=== PATIENT | male | born 1980 | race Caucasian/White ===

== ENCOUNTER 2022-02-21 13:18 | Emergency (ER) | payer OTHER ==
[~2022-02-21] VITALS: Ht 180.3 cm; Wt 84.0 kg
[2022-02-21 13:43] VITALS: BP 114/62
[2022-02-21] MEDS: LIDOCAINE 2% 20 ML VIAL. IJ ONE (13:45)
[2022-02-21] MEDS: IV NORMAL SALINE 1,000ML 1,000 ML IV ONE (13:45)
--- NOTE | 2022-02-21 14:26 | RAD ---
EXAMINATION: XR HAND_RIGHT 3 VIEWS CLINICAL HISTORY: Right hand pain. Crush injury between van and boat trailer. TECHNIQUE: XR HAND_RIGHT 3 VIEWS COMPARISON: None FINDINGS/ IMPRESSION: Joint spaces and alignment maintained. No acute fracture. Mild soft tissue swelling in the index and long fingers. Electronically signed by: Mahamed Yi DO (02/21/2022 2:24 PM) [facility]
[2022-02-21] MEDS ORDERED: IBUP800T19 PO (14:39)
--- NOTE | 2022-02-21 14:40 | PHYS DOC ---
Past History Past Medical History: No Pertinent History (AMY ROJAS) Past Surgical History: No Surgical History (AMY ROJAS) Smoking: Non-smoker Drug Use: None (AMY ROJAS) General Adult EDM: Chief Complaint: LACERATION/AVULSION HPI: HPI: Patient is a 41 year old male who presents with right hand laceration. Patient states that he was trying to prevent a boat trailer from hitting a van using his hand. He lacerated the base of digit 4 on the palmar aspect. Patient denies limited mobility of digit or any other part of his hand, paresthesias. Patient's tetanus vaccine has been updated in the last 5 years. He has no other complaints. (AMY ROJAS) Review of Systems: Review of Systems: ROS negative or noncontributory except as mentioned in HPI. (AMY ROJAS) Current Medications: Current Meds: Current Medications Medications (Trade) Dose Ordered Sig/Breana Start Time Stop Time Status Last Admin Dose Admin Lidocaine HCl (Lidocaine 2%) 20 ml 1X ONCE 02/21/22 13:45 02/21/22 13:52 DC (AMY ROJAS) Allergies: Allergies: Allergies Coded Allergies Type Severity Reaction Last Updated Verified No Known Drug Allergies 02/21/22 No (AMY ROJAS) Physical Exam: PE: Constitutional: Well developed, well nourished, no acute distress, non-toxic appearance. HENT: Normocephalic, atraumatic, bilateral external ears normal, oropharynx moist, no oral exudates, nose normal. Eyes: PERRL, EOMI, no conjunctival pallor, no discharge. Neck: Normal range of motion, no stridor. Cardiovascular: Heart regular rate and rhythm. No apparent murmurs rubs or gallops. Episodic bradycardia in the mid to upper 30s. Lungs & Thorax: Equal thoracic expansion, no increased work of breathing. Skin: Approximately 1.2 cm laceration along MCP fold of base of digit 4 on the right. Skin otherwise warm, dry, no erythema, no rash. Extremities: No tenderness, no cyanosis, no clubbing, active and passive ROM intact bilateral digits and wrists, no edema, radial pulses 2+ and symmetrical. Neurologic: Alert and oriented x4, normal motor function, normal sensory function, no focal deficits noted. (AMY ROJAS) Current Patient Data: Vital Signs: VS - Last 72 Hours, by Label Date Time Temp Pulse Resp B/P (MAP) Pulse Ox O2 Delivery O2 Flow Rate FiO2 02/21/22 13:43 97.8 42 18 114/62 (79) 97 Room Air (AMY ROJAS) EKG: EKG: EKG Interpreted by Dr. Cuellar at 1451: Sinus bradycardia at 46 bpm with no ectopic beats. IL 179 ms/QT 449 ms/QTc 393 ms. Early repolarization pattern. No STEMI. (AMY ROJAS) Radiology/Procedures: Radiology/Procedures: PROCEDURE: HAND RIGHT 3V EXAMINATION: XR HAND_RIGHT 3 VIEWS CLINICAL HISTORY: Right hand pain. Crush injury between van and boat trailer. TECHNIQUE: XR HAND_RIGHT 3 VIEWS COMPARISON: None FINDINGS/ IMPRESSION: Joint spaces and alignment maintained. No acute fracture. Mild soft tissue swelling in the index and long fingers. Electronically signed by: Mahamed Yi DO (02/21/2022 2:24 PM) [facility] (AMY ROJAS) Heart Score: C/O Chest Pain: No (AMY ROJAS) Course & Med Decision Making: Course & Med Decision Making Pertinent Labs and Imaging studies reviewed. (See chart for details) Patient is a 41-year-old male who presents with right hand laceration. During laceration repair, patient was noted to have heart rate in the mid to high 30s intermittently. Patient states his baseline heart rate is in the 40s. EKG was obtained for evaluation. No acute concerning symptoms. Patient is not symptomatic. Patient was instructed to follow-up with his primary care doctor. Return precautions and wound care instructions provided. Patient understands and is agreeable to discharge plan. (AMY ROJAS) Dragon Disclaimer: Dragon Disclaimer: This electronic medical record was generated, in whole or in part, using a voice recognition dictation system. (AMY ROJAS) Laceration Repair Lac Repair Indication: Right hand laceration Procedure: The patient was placed in the appropriate position and anesthesia around the laceration was 2% lidocaine plain. The area was then cleansed with Betadine swabs and copiously irrigated with sterile saline. The laceration was 3 simple interrupted 4-0 nylon sutures. The wound area was then dressed with nonadhesive gauze covering. Total repaired wound length: 1.2 cm. Other Items: The patient tolerated the procedure well. Complications: Intermittent, asymptomatic sinus bradycardia. (AMY ROJAS) Attending Co-Sign The patient was seen and interviewed as well as examined at the bedside. The chart was reviewed. The case was discussed. Agree with the plan of care. (MAKI CUELLAR DO) Departure Departure: Impression: Primary Impression: Laceration of right hand without complication, including fingers Qualified Codes: S61.411A - Laceration without foreign body of right hand, initial encounter Additional Impression: Sinus bradycardia seen on cfo controller Disposition: HOME / SELF CARE / HOMELESS Condition: IMPROVED Referrals: PCP,UNKNOWN (PCP) Patient Instructions: Bradycardia, Sutured Wound Care, [id number] Additional Instructions: Please schedule an appointment with your primary care physician to follow-up regarding episodic low heart rate seen in the emergency department today. Your primary care physician may also remove your sutures in 7 days. If you are unable to see your primary care provider for this purpose, feel free to return to the emergency department. Please also return for any lightheadedness, loss of consciousness or chest discomfort. EMERGENCY DEPARTMENT GENERAL DISCHARGE INSTRUCTIONS Thank you for coming to [facility] (ED) today and trusting us with you care. We trust that you had a positive experience in our Emergency Department. If you wish to speak to the department management, you may call the director at [phone]. YOUR FOLLOW UP INSTRUCTIONS ARE FOLLOWS: 1. Follow up with your primary care doctor. If you do not have a primary doctor, please ask for a resource list of physicians or clinics that may be able to assist you with follow up care. 2. The emergency provider has interpreted your imaging studies, if any were ordered. The radiology diagnostic sales specialist also reviewed them. If there is a change in the findings, you will be notified in 48 hours when at all possible. 3. If a lab test or culture has been done, your results will be reviewed and you will be notified if you need a change in treatment. 4. Follow instructions verbalized to you and refer to the printouts if needed. ADDITIONAL INSTRUCTIONS AND INFORMATION: 1. Your care today has been supervised by a physician who is specially trained in emergency care. Many problems require more than one evaluation for a complete diagnosis and treatment. We recommend that you schedule your follow up appointment as recommended to ensure complete treatment of you illness or injury. If you are unable to obtain follow up care and continue to have a problem, or if your condition worsens, we recommend that you return to the ED. 2. We are not able to safely determine your condition over the phone nor are we able to give sound medical advice over the phone. For these safety reasons, if you call for medical advice we will ask you to come to the ED for further evaluation. 3. If you have any questions regarding these discharge instructions please call the ED at [phone]. SAFETY INFORMATION: In the interest of safety, wellness, and injury prevention; we encourage you to wear your seat belt, if you smoke; quite smoking, and we encourage family to use a protective helmet for bicycling and other sporting events that present an increased risk for head injury. IF YOUR SYMPTOMS WORSEN OR NEW SYMPTOMS DEVELOP, OR YOU HAVE CONCERNS ABOUT YOUR CONDITION; OR IF YOUR CONDITION WORSENS WHILE YOU ARE WAITING FOR YOUR FOLLOW UP APPOINTMENT; EITHER CONTACT YOUR PRIMARY CARE DOCTOR, THE PHYSICIAN WHOSE NAME AND NUMBER YOU WERE GIVEN, OR RETURN TO THE ED IMMEDIATELY. Scripts Ibuprofen (IBUPROFEN) 800 Mg Tablet 1 TAB PO TID for pain, #30 TAB Prov: AMY ROJAS 02/21/22 AMY ROJAS February 21, 2022 14:40 MAKI CUELLAR DO February 22, 2022 06:08
== END 2022-02-21 15:10 | disposition home or self-care (01) ==
LOC: ER 13:18
DX: S61.411A Laceration without foreign body of right hand, initial encounter (principal); R00.1 Bradycardia, unspecified; W26.8XXA Contact with other sharp object(s), not elsewhere classified, initial encounter; Y93.89 Activity, other specified; Y92.89 Other specified places as the place of occurrence of the external cause; Y99.8 Other external cause status
CPT/HCPCS: 12001; 73130; 93005; 99283; J2001

== ENCOUNTER 2022-03-01 12:55 | Emergency (ER) | payer OTHER ==
[~2022-03-01] VITALS: Ht 180.3 cm; Wt 84.0 kg
[~2022-03-01 12:55] MED LIST: IBUP800T19 PO
--- NOTE | 2022-03-01 13:19 | PHYS DOC ---
Past History Past Medical History: No Pertinent History Past Surgical History: No Surgical History Smoking: Non-smoker Drug Use: None General Adult EDM: Chief Complaint: SUTURE/STAPLE REMOVAL HPI: HPI: Patient is a 38-year-old male who presents to the emergency department today for suture removal. Patient reports that he had 3 sutures placed to his right third finger 8 days ago. Patient does not have any complaints Review of Systems: Review of Systems: Constitutional: Denies fever or chills Eyes: Denies change in visual acuity HENT: Denies nasal congestion or sore throat Respiratory: Denies cough or shortness of breath Cardiovascular: Denies chest pain or edema GI: Denies abdominal pain, nausea, vomiting, bloody stools or diarrhea : Denies dysuria Musculoskeletal: Denies back pain or joint pain Integument: See HPI Neurologic: Denies headache, focal weakness or sensory changes Endocrine: Denies polyuria or polydipsia Lymphatic: Denies swollen glands Psychiatric: Denies depression or anxiety Allergies: Allergies: Allergies Coded Allergies Type Severity Reaction Last Updated Verified No Known Drug Allergies 02/21/22 No Physical Exam: PE: Constitutional: Well developed, well nourished, no acute distress, non-toxic appearance. [] HENT: Normocephalic, atraumatic, bilateral external ears normal, oropharynx moist, no oral exudates, nose normal. [] Eyes: PERRL, EOMI, conjunctiva normal, no discharge. [] Neck: Normal range of motion, no stridor Cardiovascular: Normal peripheral perfusion Lungs & Thorax: Normal work of breathing, no tachypnea Abdomen: Soft and flat Skin: Warm, dry, no erythema, no rash. [] 3 sutures noted to palmar aspect of right third finger, no surrounding signs of infection like redness/warmth/swelling/drainage, wound is well approximated. Back: No tenderness, normal range of motion Extremities: No tenderness, no cyanosis, no clubbing, ROM intact, no edema. [] Neurologic: Alert and oriented X 3, normal motor function, normal sensory function, no focal deficits noted. [] Psychologic: Affect normal, judgement normal, mood normal. [] EKG: EKG: [] Radiology/Procedures: Radiology/Procedures: [] Heart Score: C/O Chest Pain: N/A Risk Factors: Risk Factors: DM, Current or recent (<one month) smoker, HTN, HLP, family history of CAD, obesity. Risk Scores: Score 0 - 3: 2.5% MACE over next 6 weeks - Discharge Home Score 4 - 6: 20.3% MACE over next 6 weeks - Admit for Clinical Observation Score 7 - 10: 72.7% MACE over next 6 weeks - Early Invasive Strategies Course & Med Decision Making: Course & Med Decision Making Pertinent Labs and Imaging studies reviewed. (See chart for details) [] Patient presents to the emergency department for suture removal. Wound is well approximated without any signs of infection. 3 sutures were removed. Patient tolerated procedure. I discussed with patient all findings and diagnostic testing as well as the need to follow-up with PCP for further evaluation and treatment or return to the ER if any new or worsening symptoms. Strict return precautions were also discussed at length. Patient voiced understanding and agreement with the plan. Patient is hemodynamically stable at the time of disposition. Dragon Disclaimer: Dragon Disclaimer: This electronic medical record was generated, in whole or in part, using a voice recognition dictation system. Departure Departure: Impression: Primary Impression: Encounter for removal of sutures Disposition: 01 HOME / SELF CARE / HOMELESS Condition: GOOD Referrals: PCP,UNKNOWN (PCP) Patient Instructions: Suture Removal Additional Instructions: You are seen in the emergency department today for suture removal. Please keep the area clean and dry. He can continue to apply Polysporin or triple antibiotic ointment to the site. Follow-up with your primary care provider as needed. BERLIN TAYLOR FILING CLERK March 01, 2022 13:19
[2022-03-01 13:23] VITALS: BP 128/74
== END 2022-03-01 13:30 | disposition home or self-care (01) ==
LOC: ER 12:55
DX: S61.212D Laceration without foreign body of right middle finger without damage to nail, subsequent encounter (principal); X58.XXXD Exposure to other specified factors, subsequent encounter
CPT/HCPCS: 99281